=== PATIENT | female | born 1990 | race Caucasian/White ===

== ENCOUNTER 2020-04-25 11:15 | Emergency (ER) | payer OTHER ==
[~2020-04-25] VITALS: Ht 165.1 cm; Wt 80.5 kg
[~2020-04-25 11:15] MED LIST: BIRTH CONTROL; BUDE10.22 INH; CETI10TA26 PO; MONT10TA6 PO
[2020-04-25 11:17] VITALS: BP 129/81
== END 2020-04-25 12:40 | disposition home or self-care (01) ==
LOC: ED 12:30
DX: Z03.818 Encounter for observation for suspected exposure to other biological agents ruled out (principal)
CPT/HCPCS: 87635; 99283